=== PATIENT | female | born 1960 | race Caucasian/White ===

== ENCOUNTER 2022-03-17 17:08 | Emergency (ER) | payer OTHER ==
[~2022-03-17] VITALS: Ht 170.2 cm; Wt 86.2 kg
[~2022-03-17 17:08] MED LIST: AMLO10 PO; Armour Thyroid15 MG PO; LISHYD2025 PO; LISI5; MEDR150I; METO50ER
== END 2022-03-17 17:39 | disposition home or self-care (01) ==
LOC: ER 17:08
DX: E11.65 Type 2 diabetes mellitus with hyperglycemia (principal); I10 Essential (primary) hypertension; Z88.0 Allergy status to penicillin; Z79.899 Other long term (current) drug therapy
CPT/HCPCS: 99282

== ENCOUNTER → 2025-05-30 | Outpatient (CLI) | payer OTHER ==
[~2025-05-30] MED LIST changes: +LOSA50 PO; +METF500 PO; +OXYB5 PO; +STEGLATRO15 MG PO
== END | disposition home or self-care (01) ==
LOC: LAB SHORT 14:16 → LAB 14:16
DX: N39.0 Urinary tract infection, site not specified (principal)
CPT/HCPCS: 87077; 87086; 87186